=== PATIENT | female | born 2000 | race Caucasian/White ===

== ENCOUNTER 2021-02-12 19:29 | Emergency (ER) | payer SELFPAY ==
[~2021-02-12] VITALS: Ht 154.9 cm; Wt 79.4 kg
== END 2021-02-12 20:57 | disposition home or self-care (01) ==
LOC: ER 19:35
DX: M79.642 Pain in left hand (principal); S60.222A Contusion of left hand, initial encounter; V43.52XA Car driver injured in collision with other type car in traffic accident, initial encounter; Y92.488 Other paved roadways as the place of occurrence of the external cause
CPT/HCPCS: 99282